=== PATIENT | female | born 1990 | race Caucasian/White ===

== ENCOUNTER 2017-12-09 22:11 | Emergency (ER) | payer MEDICAID ==
[~2017-12-09] VITALS: Ht 165.1 cm; Wt 99.8 kg
[2017-12-09 22:25] VITALS: Ht 165.1 cm; Wt 99.8 kg
[2017-12-10 00:28] VITALS: BP 133/88
== END 2017-12-10 00:28 | disposition home or self-care (01) ==
LOC: ED 22:11
DX: S16.1XXA Strain of muscle, fascia and tendon at neck level, initial encounter (principal); S39.012A Strain of muscle, fascia and tendon of lower back, initial encounter; Z88.1 Allergy status to other antibiotic agents; W18.39XA Other fall on same level, initial encounter; Y93.89 Activity, other specified; Y92.89 Other specified places as the place of occurrence of the external cause; Y99.8 Other external cause status
CPT/HCPCS: 72072